=== PATIENT | female | born 1980 | race Caucasian/White ===

== ENCOUNTER → 2020-02-08 11:40 | Outpatient (BNVA) | payer OTHER, SELFPAY | PROVIDERS: Family Provider Family Medicine; Visit Provider Nurse Practitioner | DX: F33.2 Major depressive disorder, recurrent severe without psychotic features (principal) | CPT/HCPCS: 99213 ==

== ENCOUNTER → 2020-05-02 07:36 | Outpatient (BNVA) | payer BC, SELFPAY | PROVIDERS: Family Provider Family Medicine; Visit Provider Nurse Practitioner | DX: F33.2 Major depressive disorder, recurrent severe without psychotic features (principal) | CPT/HCPCS: 99214 ==

== ENCOUNTER 2020-05-06 07:19 | Outpatient (CLI) | payer OTHER, SELFPAY ==
--- NOTE | 2020-05-06 07:25 | MM_ITS ---
WS: [id number] BILATERAL DIGITAL SCREENING MAMMOGRAPHY WITH CAD CLINICAL INFORMATION: SCREENING HISTORY: Screening mammogram. No current complaints. COMPARISON: None. TECHNIQUE: Bilateral CC and MLO views. FINDINGS: Scattered fibroglandular densities bilaterally. No suspicious focal mass, asymmetry, calcifications, or architectural distortion. No evidence of malignancy. Dystrophic and punctate calcifications. MM/[place] [id number] IMPRESSION: BI-RADS: 2-Benign FOLLOW UP: 1 Year Follow-up Recommend return to annual screening mammography.
== END 2020-05-06 07:20 | disposition home or self-care (01) ==
LOC: RADSHAW 07:24
PROVIDERS: PCP Family Medicine; Visit Provider Obstetrics & Gynecology
DX: Z12.31 Encounter for screening mammogram for malignant neoplasm of breast (principal)
CPT/HCPCS: 77067

== ENCOUNTER 2020-06-22 15:51 | Outpatient (CLI) | payer OTHER, SELFPAY ==
--- NOTE | 2020-06-22 16:00 | MR_ITS ---
WS: [id number] MRI LUMBAR SPINE NONCONTRAST HISTORY: BACK PAIN CHRONIC SCIATICA COMPARISON: None available. TECHNIQUE: Sagittal and axial multisequence imaging is submitted. 5 lumbar type vertebral bodies. There is a 6 lumbar type vertebral body which will be labeled a lumba rized S1 segment for imaging purposes and reporting. There is a marked increase in the lordosis cente red at the L4-S1 segments. L5 anterolisthesis by 6 mm with unroofing of the disc. There is marrow xander ma in the adjacent endplates of L5 and S1. Marked degenerative disc disease at L5-S1 and the root of mesentery S1-S2 levels. Conus terminates normally at L1-2 disc level. L1-L2: Normal. L2-L3: Normal. L3-L4: Mild annular disc bulging with ligamentum flavum hypertrophy and facet arthritis. Small amount of fluid in the facet joints. L4-L5: Mild facet joint arthritis with ligamentum flavum hypertrophy. There is mild disc bulging with out significant stenosis at this time. L5-S1: Unroofing of the disc due to anterolisthesis of L5. There is disc contacting the ventral theca l sac with moderate stenosis. Complete obliteration of the fat in the foramen. There is significant d isc bulging into the foramen. Greatest amount of disc in the RIGHT foramen and disc protrusions are n ot excluded. Severe facet joint arthritis. Mild encroachment of the disc into the subarticular recess es. S1-S2: Broad-based disc bulging. No stenosis. MR/MR lumbar spine wo con* [id number] IMPRESSION: 1. L5 anterolisthesis by 6 mm and suspect bilateral fragmented pars defects. T here is severe bilateral foraminal stenosis at L5-S1, RIGHT greater than LEFT. 2. S1 is lumbarized. 3. Mild central and subarticular recess stenosis at L5-S1. 4. Marrow edema is probably reactive in the adjacent endplates of L5 and S1.
== END 2020-06-22 15:52 | disposition home or self-care (01) ==
LOC: RADSHAW 15:56
PROVIDERS: PCP Family Medicine; Visit Provider Family Medicine
DX: M54.5 Low back pain (principal); G89.29 Other chronic pain; M54.30 Sciatica, unspecified side; M48.07 Spinal stenosis, lumbosacral region; Q76.49 Other congenital malformations of spine, not associated with scoliosis; R60.0 Localized edema
CPT/HCPCS: 72148

== ENCOUNTER 2020-07-07 06:00 | Outpatient (RCR) | payer OTHER, SELFPAY | END 2020-07-18 23:59 | disposition home or self-care (01) | LOC: SPT 06:00 | PROVIDERS: PCP Family Medicine; Referring Provider Surgery; Visit Provider Surgery | DX: M54.10 Radiculopathy, site unspecified (principal); M43.16 Spondylolisthesis, lumbar region | CPT/HCPCS: 97110; 97161; 97530 ==

== ENCOUNTER → 2020-07-12 10:21 | Outpatient (BNVA) | payer OTHER, SELFPAY | PROVIDERS: Family Provider Family Medicine; PCP Family Medicine; Referring Provider Surgery; Visit Provider Anesthesiology Pain Medicine | DX: M54.42 Lumbago with sciatica, left side (principal); M54.41 Lumbago with sciatica, right side; M51.36 Other intervertebral disc degeneration, lumbar region; M47.816 Spondylosis without myelopathy or radiculopathy, lumbar region; M54.16 Radiculopathy, lumbar region; M43.10 Spondylolisthesis, site unspecified; M54.9 Dorsalgia, unspecified; M62.830 Muscle spasm of back; F17.210 Nicotine dependence, cigarettes, uncomplicated | CPT/HCPCS: 99205 ==

== ENCOUNTER → 2020-07-18 12:32 | Outpatient (BNVA) | payer OTHER, SELFPAY | PROVIDERS: Family Provider Family Medicine; PCP Family Medicine; Visit Provider Anesthesiology Pain Medicine | DX: M54.16 Radiculopathy, lumbar region (principal); M54.9 Dorsalgia, unspecified; F17.210 Nicotine dependence, cigarettes, uncomplicated | CPT/HCPCS: 64483; 64484; J1040; J3490 ==

== ENCOUNTER 2020-07-19 06:00 | Outpatient (RCR) | payer OTHER, SELFPAY | END 2020-08-17 23:59 | disposition home or self-care (01) | LOC: SPT 06:00 | PROVIDERS: PCP Family Medicine; Referring Provider Surgery; Visit Provider Surgery | DX: M54.10 Radiculopathy, site unspecified (principal); M43.16 Spondylolisthesis, lumbar region | CPT/HCPCS: 97110; 97530 ==

== ENCOUNTER → 2020-08-01 10:06 | Outpatient (BNVA) | payer OTHER, SELFPAY | PROVIDERS: PCP Family Medicine; Visit Provider Anesthesiology Pain Medicine | DX: M51.36 Other intervertebral disc degeneration, lumbar region (principal); M47.816 Spondylosis without myelopathy or radiculopathy, lumbar region; M54.16 Radiculopathy, lumbar region; M54.9 Dorsalgia, unspecified; M43.10 Spondylolisthesis, site unspecified; M62.830 Muscle spasm of back; F17.210 Nicotine dependence, cigarettes, uncomplicated | CPT/HCPCS: 99214 ==

== ENCOUNTER → 2020-08-09 08:02 | Outpatient (BNVA) | payer OTHER, SELFPAY | PROVIDERS: PCP Family Medicine; Visit Provider Nurse Practitioner | DX: F33.2 Major depressive disorder, recurrent severe without psychotic features (principal) | CPT/HCPCS: 99213 ==

== ENCOUNTER → 2020-08-17 14:03 | Outpatient (BNVA) | payer OTHER, SELFPAY | PROVIDERS: PCP Family Medicine; Visit Provider Anesthesiology Pain Medicine | DX: M47.816 Spondylosis without myelopathy or radiculopathy, lumbar region (principal); M54.9 Dorsalgia, unspecified; F17.210 Nicotine dependence, cigarettes, uncomplicated | CPT/HCPCS: 64493; 64494; 64495; J1040; J3490 ==

== ENCOUNTER 2020-08-18 06:00 | Outpatient (RCR) | payer OTHER, SELFPAY | END 2020-09-17 23:59 | disposition home or self-care (01) | LOC: SPT 06:00 | PROVIDERS: PCP Family Medicine; Referring Provider Surgery; Visit Provider Surgery | DX: M54.10 Radiculopathy, site unspecified (principal); M43.16 Spondylolisthesis, lumbar region | CPT/HCPCS: 97110 ==

== ENCOUNTER → 2020-08-23 10:26 | Outpatient (BNVA) | payer OTHER, SELFPAY | PROVIDERS: PCP Family Medicine; Visit Provider Anesthesiology | DX: M51.36 Other intervertebral disc degeneration, lumbar region (principal); M54.16 Radiculopathy, lumbar region; M47.816 Spondylosis without myelopathy or radiculopathy, lumbar region; M43.10 Spondylolisthesis, site unspecified; M54.9 Dorsalgia, unspecified; M62.830 Muscle spasm of back; F17.210 Nicotine dependence, cigarettes, uncomplicated; Z79.891 Long term (current) use of opiate analgesic | CPT/HCPCS: 99213; 99214 ==

== ENCOUNTER → 2020-09-16 09:02 | Outpatient (BNVA) | payer OTHER, SELFPAY | PROVIDERS: PCP Family Medicine; Visit Provider Anesthesiology | DX: M51.36 Other intervertebral disc degeneration, lumbar region (principal); M47.816 Spondylosis without myelopathy or radiculopathy, lumbar region; M54.16 Radiculopathy, lumbar region; M54.9 Dorsalgia, unspecified; M62.830 Muscle spasm of back; F17.210 Nicotine dependence, cigarettes, uncomplicated; Z79.891 Long term (current) use of opiate analgesic | CPT/HCPCS: 99213; 99214 ==

== ENCOUNTER 2020-09-18 06:00 | Outpatient (RCR) | payer OTHER, SELFPAY | END 2020-10-17 23:59 | disposition home or self-care (01) | LOC: SPT 06:00 | PROVIDERS: PCP Family Medicine; Referring Provider Surgery; Visit Provider Surgery | DX: M54.10 Radiculopathy, site unspecified (principal); M43.16 Spondylolisthesis, lumbar region | CPT/HCPCS: 97110 ==

== ENCOUNTER → 2020-09-20 10:07 | Outpatient (BNVA) | payer OTHER, SELFPAY | PROVIDERS: PCP Family Medicine; Referring Provider Family Medicine; Visit Provider Orthopaedic Surgery | DX: M47.816 Spondylosis without myelopathy or radiculopathy, lumbar region (principal); M41.80 Other forms of scoliosis, site unspecified | CPT/HCPCS: 72114 ==

== ENCOUNTER → 2020-09-29 10:45 | Outpatient (BNVA) | payer OTHER, SELFPAY | PROVIDERS: PCP Family Medicine; Visit Provider Anesthesiology | DX: M54.16 Radiculopathy, lumbar region (principal); M54.9 Dorsalgia, unspecified; M51.36 Other intervertebral disc degeneration, lumbar region; M47.816 Spondylosis without myelopathy or radiculopathy, lumbar region; F17.210 Nicotine dependence, cigarettes, uncomplicated; Z79.891 Long term (current) use of opiate analgesic | CPT/HCPCS: 62323; J1040; J3490 ==

== ENCOUNTER → 2020-10-17 07:52 | Outpatient (BNVA) | payer OTHER, SELFPAY | PROVIDERS: PCP Family Medicine; Visit Provider Nurse Practitioner | DX: F33.2 Major depressive disorder, recurrent severe without psychotic features (principal); F17.210 Nicotine dependence, cigarettes, uncomplicated | CPT/HCPCS: 99213 ==

== ENCOUNTER 2020-10-18 06:00 | Outpatient (RCR) | payer OTHER, SELFPAY | END 2020-11-08 23:00 | disposition home or self-care (01) | LOC: SPT 06:00 | PROVIDERS: PCP Family Medicine; Referring Provider Surgery; Visit Provider Surgery | DX: M54.10 Radiculopathy, site unspecified (principal); M54.9 Dorsalgia, unspecified; M43.16 Spondylolisthesis, lumbar region | CPT/HCPCS: 97110 ==

== ENCOUNTER → 2020-11-02 07:59 | Outpatient (BNVA) | payer OTHER, SELFPAY | PROVIDERS: PCP Family Medicine; Visit Provider Orthopaedic Surgery | DX: Z11.59 Encounter for screening for other viral diseases (principal); M43.16 Spondylolisthesis, lumbar region | CPT/HCPCS: 87635 ==

== ENCOUNTER 2020-11-09 11:21 | Inpatient (IN) | payer OTHER, SELFPAY ==
[2020-11-08 14:56] VITALS: BMI 32.1
[2020-11-09] VITALS (79 sets, daily range): BP systolic 90–163; BP diastolic 63–105; PULSE 73–102; RESP 9–29; TEMP 36.4–37.2; O2SAT 92–100
--- NOTE | 2020-11-09 | SCC_ITS ---
Procedure Done: 1. L4/5 Interbody fusion with posterolateral fusion 2. Instrumentation L4/5 3. Cage at L4/5 4. Laminectomy L4 for decompresion of bilateral L5 Nerve roots 5. use of autograft from same incision 6. allograft 7. Bone marrow aspirate from pedicle Right L5 pedicle 8. reduction of spondylolisthesis 45.3 seconds of fluoroscopic guidance, for a cumulative dose of 137.54 mGy, was provided to Dr. Sidhu by the radiology department. C-arm images of the lumbar spine were saved for the patient's permanent record. [facility]ITAL[facility]ory
--- NOTE | 2020-11-09 | XR_ITS ---
WS: [id number] C-ARM RADIOGRAPHS LUMBAR SPINE; 4 IMAGES HISTORY: LUBAR DECOMPRESSION COMPARISON: 09/20/2020 Intraoperative imaging during L4-5 posterior fusion with interbody spacer. Very mild persistent anter olisthesis of L5. XR/XR lumbar spine 2-3V* [id number] IMPRESSION: Status post posterior lumbar fusion with interbody spacer at what appears to be the L4-5 level.
--- NOTE | 2020-11-09 06:37 | W.PM.OPSUD ---
Surgery/Procedure H&P Update DATE OF PROCEDURE: November 09, 2020 DATE H&P PERFORMED: 10/11/20 H&P UPDATE INFORMATION: I have reviewed H&P completed within last 30 days, I have examined patient prior to procedure and No changes to prior documentation PREOP DIAGNOSIS: L4/5 Spondylolithesis PLANNED PROCEDURE: Operation Date: 11/09/20 07:00 Proposed Procedures p L4/5 PLIF(Not Applicable) - Ankit Sidhu DO
[2020-11-09] MEDS: sodium chloride 0.9% 1,000 ML 30 ML IV (06:47)
[2020-11-09 07:16] LABS: OR HCG Qualitative Urine Negative (Negative)
--- NOTE | 2020-11-09 07:17 | ANES.PREANE2 ---
Pre-Anesthetic Assessment Pre-Anesthetic Assessment: Height/Weight: Height 1.7 m Weight 92.986 kg Temp Pulse Resp BP Pulse Ox 97.8 F 102 H 18 163/103 99 11/09/20 06:37 11/09/20 06:37 11/09/20 06:37 11/09/20 06:37 11/09/20 06:37 Preop Diagnosis: L4/5 Spondylolithesis Proposed Procedure: Operation Date: 11/09/20 07:00 Proposed Procedures p L4/5 PLIF(Not Applicable) - Ankit Sidhu, DO Was Beta Katheryn taken within 24 hours: N/A Last intake: Intake Last Liquid Date 11/08/20 Last Liquid Time 23:30 Last Solid Date 11/08/20 Last Solid Time 23:30 Social: Social History: Tobacco and No alcohol Exam: Pre-Anes Outpt Exam: alert, oriented x 3 and regular rate & rhythm Additional Exam Findings (including area of procedure): Decreased BS Airway: Submandibular: WNL Cervical ROM: WNL MP: 1 Dentition: Full Pulmonary: Pulmonary: COPD CV/HEM: CV/HEM: HTN : : None reported Hepatic: Hepatic: None reported GI: GI: None reported Metabolic: Metabolic: None reported Musc/skel: Comments: Chronic back pain/opioid Neuropsych: Neuropsych: Anxiety and Depression Anesthetic Plan: ASA status: 3 Anesthesia: General Risk of > 500 ml blood loss (7ml/kg in children): Yes, adequate IV access and fluids planned Meds/Allergies Current Medications: Current Medications Generic Name Dose Route Start Last Admin Trade Name Freq PRN Reason Stop Dose Admin Sodium Chloride 1,000 mls @ 30 ml s/hr 11/09/20 06:15 11/09/20 06:47 Sodium Chloride 0.9% IV 11/10/20 06:14 30 mls/hr .Q24H RENZO Administration PFSH Anesthesia PFSH: Medical History (Updated 10/17/20 @ 12:54 by Danielle Bergman [facility] History of narcotic addiction Reports having spondylolisthesis and chronic lower back pain and was using pain medication for this. In December 2017 she checked herself into rehabilitation at [facility] and has not been on any narcotics since then. History of PCOS States that she was diagnosed with PCOS in her 20s. assisted (current) use of opiate analgesic Major depressive disorder, recurrent severe without psychotic features Nicotine dependence, cigarettes, uncomplicated No pertinent past medical history Denies diabetes, asthma, hypertension, seizures, DVT/PE. PMD: Dr. Urbano Surgical History S/P LEEP Has had 2 LEEP's in the past one at the age of 19 or 24 abnormal Pap smear and then again at the age of 27. S/P left knee surgery Open surgery done for done for a torn anterior cruciate ligament S/P wisdom tooth extraction Family History Father Heart disease Grandmother Breast cancer maternal, diagnosed in her 70s Denies family history of Colon cancer Ovarian cancer Diabetes Hyperlipidemia Anesthesia complication Hypertension Uterine cancer Stroke Social History Smoking and tobacco status: current every day smoker cigarettes Alcohol intake: current Alcohol intake frequency: few times a month History of recent travel: No Female Reproductive History: Date of last menstrual period: 11/08/20 Data Anesthesia Other Labs: Laboratory Results - last 48 hr 11/09/20 05:58 Urine HCG, Qual Negative Cardiac Studies: No Data to Display
[2020-11-09] MEDS: midazolam 1 mg/mL INJ 2 mL 2 MG IVP (07:20)
[2020-11-09] MEDS: heparin, porcine 1,000 unit/mL INJ 10 mL 10000 UNIT IRRIGATION (08:07)
--- NOTE | 2020-11-09 11:49 | P.OP_ITS ---
Operative Report Date of procedure: November 09, 2020 Pre-op Diagnosis: L4/5 Spondylolithesis Post-op diagnosis: same Procedure Done: 1. L4/5 Interbody fusion with posterolateral fusion 2. Instrumentation L4/5 3. Cage at L4/5 4. Laminectomy L4 for decompresion of bilateral L5 Nerve roots 5. use of autograft from same incision 6. allograft 7. Bone marrow aspirate from pedicle Right L5 pedicle 8. reduction of spondylolisthesis Surgeon: Ankit Sidhu Anesthesia: General Estimated blood loss (mL): 250 Condition: stable Disposition: PACU Procedure: 1. L4/5 Interbody fusion with posterolateral fusion 2. Instrumentation L4/5 3. Cage at L4/5 4. Laminectomy L4 for decompresion of bilateral L5 Nerve roots 5. use of autograft from same incision 6. allograft 7. Bone marrow aspirate from pedicle Right L5 pedicle 8. reduction of spondylolisthesis Patient was brought to the operative suite placed in the prone position after undergoing anesthesia and giving neuro monitoring connected. There were no issues with neuro monitoring throughout the entire case. Patient was placed in the prone position all areas impingement well-padded patient was prepped and draped in normal sterile fashion. Skin incision made over the L4-5 level. This confirmed under C-arm guidance. thoracolumbar fascia was split. Subperiosteal dissection was made from L4 and L5 to the tips of transverse processes. Once exposure was completed the fibrous tissue in the pars defect was identified and screws were placed into L5 bilaterally. Prior to placing the right L5 pedicle screw with the region of cell aspiration kit was used for bone marrow aspirate at the L5 pedicle. Just prior to placing the L5 screw this was done with a drill gearshift or feeling with a ball probe and then placing screws. Extension was brought to placing the L4 screws this was done in same technique with a drill gearshift probe ends and then placement the screw these were tapped in order to get a hold started because of the significant benefits fibrous tissue around this from the pars defect. It was also translated anteriorly significantly. Was brought to perform the laminectomy the high-speed bur was used to perform laminectomy bilaterally partial facetectomy on the right side was completed in the L5 nerve root was traced all the way around the L5 pedicle felt to be adequate decompressed. There was a significant step-off. At this point tender was brought to the left side where facetectomy was performed and the L5 nerve root was identified dissipates identified and to moustapha were placed in order to facilitate loosening up the disc base once this was completed then wendy was attached to the L5 pedicle and reduction towers placed onto the L4 pedicle and spondylolisthesis was reduced and distracted and locked into position. Next attention was brought to back to the disc space. Moustapha were done elevated 10 pituitary and downgoing curettes used to scrape the endplates. A size 10 cage from [employer] was placed into the interbody space of L4-5. The AP lateral fluoroscopy ensured the cage the appropriate spot. Screws rods were then attached to the left side again reduction tire was placed to reduce the fracture of the spondylolisthesis more. Next the wounds irrigated and bone graft was packed into the gutters after subparagraph after decortication of the TPs were done. Once all the bone graft was placed AP lateral fluoroscopy was inserted the hardware and reduction were complete still just around the thoracolumbar fascia was closed with 0 Vicryl skin was closed with 2-0 Vicryl and Monocryl suture and glue. Sterile dressing applied patient transferred to the PACU in stable condition.
--- NOTE | 2020-11-09 11:57 | SUR.PHASEI ---
1144 PT TO PACU SLEEPY WITH SNORING RESP , ORAL AIRWAY PLACED BY RN PER MAJOR EMERY GRINDER REQUEST AT BEDSIDE. VSS SCDS ON ANTOINE DRAIN COMPRESSED AND WITH SMALL AMT RED DRAINAGE NOTED PT AWAKES AND ORAL AIRWAY OUT PT MOVES ALL EXT TO COMMAND
[2020-11-09] MEDS: fentaNYL 50 mcg/mL INJ 2mL IVP (12:05)
[2020-11-09] MEDS: HYDROmorphone 1 mg/mL INJ 1 mL 0.5 MG IVP (12:11)
--- NOTE | 2020-11-09 12:18 | SUR.PHASEI ---
ABOVE ENTRY PT AWAKE AT 1200 ORAL AIRWAY OUT PT VERBALIZED APPROP MOVES ALL EXP C/O OF BACK PAIN OF 9 PT RESTLESS REMINDED TO LAY STILL 1220 PT SLEEPS NOW WITH GOOD RESP EFFORT ON 3LNC SATS 99% VSS ANTOINE DRAIN REMAINS COMPRESSED WITH SMALL AMT TO CONTAINER
--- NOTE | 2020-11-09 13:03 | ANE.PACU2 ---
Inpatient post-anesthesia follow up: Airway intact: Yes Vital signs: Temperature 97.6 F Pulse Rate 95 Respiratory Rate 24 Blood Pressure 123/92 Pulse Oximetry 99 Oxygen Delivery Me thod Nasal Cannula Oxygen Flow Rate 3 Fraction of Inspir ed Oxygen Hydration adequate: Yes Nausea and vomiting: No Pain level: 3 Additional Comments: Sedated
[2020-11-09] MEDS: lactated ringers 1,000 ML 90 ML IV (13:22)
[2020-11-09] MEDS: HYDROcodone-acetaminophen 10-325 mg Tablet PO ×2 (14:21→21:25)
[2020-11-09] MEDS: ketorolac 30 mg/mL INJ IVP ×2 (14:54→21:25)
[2020-11-09] MEDS: gabapentin 100 mg Capsule 200 MG PO ×2 (14:57→21:26)
--- NOTE | 2020-11-09 15:02 | PC.NURSE ---
teary eyed. asking to talk to her brother. belongings tracked down and phone to pt.
--- NOTE | 2020-11-09 15:12 | PC.NURSE ---
attempted to give fentanyl for pain. this was a pacu order. wasted 50 when i got it out, but after trying to scan in room it was for pacu. when i.t. helped me with transfer then pacu orders went away this fentanyl went away to waste other 50mcg. so total of 100mcg. wasted witnessed by dev lyle.
[2020-11-09] MEDS: morphine 4 mg/mL SDV 1 mL 2 MG IVP ×2 (15:27→19:34)
--- NOTE | 2020-11-09 15:35 | PC.NURSE ---
continues to c/o severe pain. m.s. given. backpack to room glasses and cell phone to pt.
--- NOTE | 2020-11-09 17:19 | PC.RESP ---
Smoking Cessation information sent to patient.
[2020-11-09] MEDS: OXcarbazepine 300 mg Tablet PO (19:32)
[2020-11-09] MEDS: docusate sodium 100 mg Capsule PO (19:33)
[2020-11-09] MEDS: trazodone 50 mg Tablet PO (21:26)
[2020-11-10] VITALS (17 sets, daily range): BP systolic 112–133; BP diastolic 75–91; PULSE 78–106; RESP 16; TEMP 36.7–37.4; O2SAT 92–99
[2020-11-10] MEDS: HYDROcodone-acetaminophen 10-325 mg Tablet PO ×4 (02:26→14:21)
[2020-11-10] MEDS: ketorolac 30 mg/mL INJ IVP ×2 (02:26→07:33)
--- NOTE | 2020-11-10 03:01 | PC.NURSE ---
ASSUMING CARE Patient resting in bed and states pain of 7/10 and on room air. Day shift nurse administered IV morphine. Hemovac draining. Patient alert and oriented x 4. No additional needs at this time.
--- NOTE | 2020-11-10 03:11 | PC.NURSE ---
UP TO BATHROOM Patient asked for assitance up to the commode. With the assistance of nurse and the walker, patient ambulated to the bathroom with minimal assistance. Patient did the majority of moving to the side of the bed and standing with spine precautions and no twisting with minimal nurse assistance. Patient states that it felt good to stand up and walk and is back in bed with call light in reach.
[2020-11-10] MEDS: enoxaparin 40 mg/0.4 mL Syringe SUBCUT (05:49)
--- NOTE | 2020-11-10 06:34 | PC.NURSE ---
SHIFT SUMMARY Once pain under control and patient found a comfortable position, patient slept most of shift. Up to bathroom once with minimal assistance and urinated 1 void. No BM yet. Pain medications given throughout night and patient states that she is feeling better this morning and that it felt good to get up.
--- NOTE | 2020-11-10 08:07 | P.DS_ITS ---
Discharge Providers Date of Admission: 11/09/20 11:21 Date of Discharge: November 10, 2020 Attending Provider at Admission: Ankit Sidhu DO Attending Provider at Discharge: Ankit Sidhu DO Primary Care Provider: Rip Urbano MD Reason for Visit Reason for Visit: lumbar decompression Hospital Course Hospital Course Patient was mated on 11/09/2025 after having a posterior lumbar interbody fusion done. Patient was able to get up to chair and go to the bathroom on her own last night. Pain seems to be controlled this morning. Plan will be to take the drain out this morning she had 100 cc at the drain this morning. At this point my plan is to discharge her today which is 11/10/2020. Physical Exam Narrative: EXAM NARRATIVE: She has 5 out of 5 strength bilateral lower extremities sensation is intact. She is sitting up comfortably in bed. Discharge Data Data Completed and Pending: Completed Studies During Hospitalization Category Date Time Status XR lumbar spine 2 -3V* [id number] Routine Exams 11/09/20 Completed Vitals: Last Vital Signs Temp 98.9 F 11/10/20 06:30 Pulse 81 11/10/20 06:30 Resp 16 11/09/20 20:30 BP 130/86 11/10/20 06:30 Pulse Ox 95 11/10/20 06:30 Discharge Plan Discharge Patient Disposition: Home Condition: Stable Prescriptions: [facility] 10-325 mg tablet 1 tab PO Q4H PRN (Reason: pain) 7 Days Qty: 60 RF: 0 Continued acetaminophen [Tylenol Extra Strength] 500 mg tablet 500 mg PO Q6H PRN (Reason: Pain) RF: 0 norethindrone (contraceptive) [Ortho Micronor] 0.35 mg tablet 0.35 mg PO DAILY Qty: 84 RF: 3 celecoxib [Celebrex] 200 mg capsule 200 mg PO DAILY 30 Days Qty: 30 RF: 1 tizanidine 4 mg tablet 4 mg PO BID PRN (Reason: muscle spasticity) Qty: 60 RF: 1 gabapentin 100 mg capsule 200 mg PO TID 30 Days Qty: 180 RF: 1 trazodone 50 mg tablet 50 mg PO .QHS Qty: 30 RF: 2 duloxetine [Cymbalta] 60 mg capsule,delayed release(DR/EC) 120 mg PO DAILY Qty: 60 RF: 2 buspirone 15 mg tablet 15 mg PO BID Qty: 60 RF: 2 oxcarbazepine [Trileptal] 300 mg tablet 300 mg PO BID Qty: 60 RF: 0 clonazepam 0.5 mg tablet 0.25 mg PO BID PRN (Reason: anxiety) Qty: 60 RF: 0 Discontinued hydrocodone-acetaminophen 7.5-325 mg tablet 1 tab PO BID PRN (Reason: pain) 30 Days Qty: 60 RF: 0 Discharge Orders: Discharge Order (Routine); Ordered 11/10/20 Ordered By: Ankit Sidhu Discharge Diet: Advance as tolerated Activity Restrictions/Additional Instructions: Thank you for [facility] for your care! The following is a list of instructions, from your provider, to follow upon your discharge to ensure you have the optimal recovery from your recent injury orsurgery. Follow-up care is a goldberg part of your treatment and safety. Be sure to make and go to all appointments, and call your doctor if you are having problems. If you do not already have a follow-up appointment made, call Dr. Sidhu office in the next 1-3 days to make follow up appointment for 2 weeks at [phone]. It is also a good idea to know your test results and keep a list of the medicines you take. Medications will be prescribed for you at your provider's discretion. These medications are to be used as instructed; if they are taken more often that prescribed they will not be refilled early and in most cases will not be refilled at all. > When a refill is needed,you should contact matty malik 2-3 business days before your prescription runs out. Medications will NOT be refilled by functional mental disability teacher providers after hours! > Many pain medications contain Tylenol (Acetaminophen). Do not consume more than 4,000 mg of Tylenol per day in total with any combination ofmedications. > Pain medications can cause constipation. Please use an over the counter stool softener as directed, while taking pain medications. Consulty our local pharmacist with questions or recommendations on stool softeners. If constipation persists, contact our office or your primary care provider. > While under our care,you are not to receive pain medications or other controlled substances from any other provider unless our office is notified and approves. Any attempts to do so will result in refusal to prescribe any further pain medications and possible dismissal from our practice. ? Your wound and/or dressing should remain clean and dry for 2 days after surgery. On postoperative day 2 (48 hours after your surgery) the dressing (if present) should be removed and it is okay to shower and get the incision wet. Pad dry afterwards. No further dressing should be required from that point on. Do not put any creams or ointments on theincision > It is normal for there to be a small amount of discharge (bloody or blood tinged) present from a surgical wound for the first 1-3days. > The wound should be examined twice a day for signs of infection. Mild redness or bruising is to be expected but indications that an infection maybe starting would include; An increase in redness, swelling, or discharge, a foul odor present around the incision, and/or a fever greater than 101 ?F ? Showering is permitted, however we ask that you do not take a bath, sit in a whirlpool / Jacuzzi, or go swimming for 1 month. For only the first 2 days after surgery, lt wilt be necessary for you to cover your wound/dressing with plastic and tape to keep it dry. ? Walking is essential for the healing process after surgery. We would like you to slowly advance your walking. This should be done on relatively flat clear ground (inside or out) or can be done on a treadmill. Remember this goal does not have to happen all at once, slowly increase your distance and duration. This can be broken into more more than one walk per day as tolerated. Patients who walk as directed after surgery rarely require Physical Therapy. In the unlikely event this issue arises your provider will direct hospital staff to make the appropriate arrangements. ? No lifting over 5 pounds {a gallon of milk) or bending/twisting until further notice. Each of these activities places an unnecessary amount of stress onto the body and can impede the delicate healing process. > Instead of bending at the waist, keep your back straight and bend at the knees. > Instead of twisting your torso, keep your back straight and turn your entire body with your feet. ? You may sleep in any position which makes you comfortable. Many patients find comfort sleeping in a reclining chair. It is not abnormal to have difficulty sleeping for the first several weeks following your surgery. We recommend trying Benadry! or Tylenol PM as directed to help with your sleeping difficulties. Both medications are over the counter and available withoutprescription. ? NO SMOKING!!! Smoking dramatically increases the probability of developing postoperative wound infections. ? Common complaints after lumbar and/or thoracic spine surgery include, but are not limited to: numbness and/or tingling in the legs, pain around the incision and surrounding tissues, muscle spasms, or stiffness of the middle to low back. Contact our office if these symptoms persist or if an acute change occurs. ? No driving for the first 3-5days, and not while taking narcotics until seen at your follow-up appointment and cleared. There are no restrictions for riding on short trips, however if you take a longer trip, arrangements s hould be made to make regular stops to get out of the vehicle and stretch . ? Swelling is an unfortunate event that will take place with any surgery and is the primary source of your postoperative discomfort. While walking and regular approved activities helps control inflammation, there are additional steps you can take to minimizeswelling. > Place ice over the surgical site and surrounding tissue for twenty minutes, followed by applying a low/medium heat (heating pad) for an additional twenty minutes every 1-2 hours as needed for painrelief. > You may use of over the counter anti-inflammatory medications (Ibuprofen, Motrin, Aleve, Advil, etc) as directed on the package label. These types of medicines wm significantly reduce the amount of discomfort you experience after surgery from swelling. It should be noted that if you have and allergy to any of these medications, or a history of ulcers or kidney disease you should consult you primary care provider prior to starting these medications. Discharge Attestations Time Spent in Discharge Care*: less than 30 min Quality Metrics Clinical Quality Measures During this hospital stay, did patient experience: None Coding Level of Care Code Acute Lav Crewman for Monika Payne
[2020-11-10] MEDS: CELEcoxib 200 mg Capsule PO (09:04)
[2020-11-10] MEDS: OXcarbazepine 300 mg Tablet PO (09:04)
[2020-11-10] MEDS: docusate sodium 100 mg Capsule PO (09:04)
--- NOTE | 2020-11-10 11:04 | PC.CHAP ---
Pastoral Care Encounter/Spiritual Assessment Type of Contact [] Declined inspector tubes visit [] Patient/Family/Request visit [] Outpatient visit [] Follow-up visit [] Physician referral [] Code/Alert [x] Routine visit [] Staff referral [] Actively dying [] Patient sleeping [] Family support [] [] Out of room [] Palliative care [] [x] Receiving care in room [] Pre-surgical visit [] Trauma [] Long length of stay [] ICU visit [] Other: Relational/Emotional Strength [] Patient feels connected with others/family/visitors/staff [x] Distress [] Loneliness/isolation [] Abandonment Spirituality of Patient [x] Person of Anitha [] Attends Sabianist of their Anitha [x] Believes in Prayer [] Reads Bible or Congregation materials [] There are Spiritual issues to be addressed Enamel Cracker Interventions [x] Prayer [x] Active listening [x] Non-anxious presence [x] Spiritual/emotional support [] Crisis/trauma care [x] Spiritual counseling [] Bereavement support [] Provided bereavement packet [] Provided Bible/devotional materials [] Provided toy/stuffed animal, coloring book to patient or family member [] Provided Communion [] Anointing/[place] [] Salvation [x] Completed spiritual assessment [] Other: Impact on Illness or Injury [] Angry [x] Fearful [] Anxious [] Often cries [] Exhaustion [] Unable to work [] Unable to attend episcopalian [] Unable to walk/stand [] Unable to read [] Unable to drive [] Unable to eat/drink [] Unable to sleep [] Unable to be with family [] Patient intubated [] Other: Summary Has a back problem in sever pain, doesn't know about the kind of treatment needed Time spent with patient 10 mins
--- NOTE | 2020-11-14 16:24 | PC.RESP ---
Smoking Cessation sent to patient.
== END 2020-11-10 15:03 | disposition home or self-care (01) | DRG 460 ==
LOC: ICU 11:51 → MEDSURG 11-10 08:03
PROVIDERS: Anesthesiology; Admitting Provider Orthopaedic Surgery; PCP Family Medicine; Visit Provider Orthopaedic Surgery
PROC: 0SG00AJ Fusion of Lumbar Vertebral Joint with Interbody Fusion Device, Posterior Approach, Anterior Column, Open Approach (ICD-10-PCS; principal; 2020-11-09 07:00)
DX: M43.16 Spondylolisthesis, lumbar region (principal); I10 Essential (primary) hypertension; J44.9 Chronic obstructive pulmonary disease, unspecified; G89.29 Other chronic pain; F41.8 Other specified anxiety disorders; Z79.891 Long term (current) use of opiate analgesic; F17.210 Nicotine dependence, cigarettes, uncomplicated
CPT/HCPCS: 12345; 72100; 76000; 81025; 84703; 96365; 96372; 96374; 97116; 97161; 97530; C1713; C9359; J0131; J0690; J1100; J1170; J1644; J1650; J1885; J2250; J2270; J2370; J2405; J2704; J3010; J3490; J7030

== ENCOUNTER → 2020-12-27 10:36 | Outpatient (BNVA) | payer OTHER, SELFPAY | PROVIDERS: PCP Family Medicine; Visit Provider Orthopaedic Surgery | DX: M43.16 Spondylolisthesis, lumbar region (principal); Z98.1 Arthrodesis status | CPT/HCPCS: 72100 ==

== ENCOUNTER → 2021-01-24 13:36 | Outpatient (BNVA) | payer OTHER, SELFPAY | PROVIDERS: PCP Family Medicine; Visit Provider Internal Medicine | DX: E04.1 Nontoxic single thyroid nodule (principal); E28.2 Polycystic ovarian syndrome; R63.5 Abnormal weight gain; R73.03 Prediabetes | CPT/HCPCS: 99205 ==

== ENCOUNTER → 2021-02-08 07:45 | Outpatient (BNVA) | payer OTHER, SELFPAY | PROVIDERS: PCP Family Medicine; Visit Provider Nurse Practitioner | DX: F33.2 Major depressive disorder, recurrent severe without psychotic features (principal); F17.210 Nicotine dependence, cigarettes, uncomplicated | CPT/HCPCS: 99214 ==

== ENCOUNTER → 2021-02-09 15:59 | Outpatient (BNVA) | payer OTHER, SELFPAY | PROVIDERS: PCP Family Medicine; Visit Provider Orthopaedic Surgery | DX: Z48.89 Encounter for other specified surgical aftercare (principal); M43.16 Spondylolisthesis, lumbar region; Z98.1 Arthrodesis status | CPT/HCPCS: 72100 ==

== ENCOUNTER 2021-02-13 06:00 | Outpatient (RCR) | payer OTHER, SELFPAY | END 2021-02-15 23:59 | disposition home or self-care (01) | LOC: SPT 06:00 | PROVIDERS: PCP Family Medicine; Referring Provider Orthopaedic Surgery; Visit Provider Orthopaedic Surgery | DX: M47.816 Spondylosis without myelopathy or radiculopathy, lumbar region (principal) | CPT/HCPCS: 97110; 97161 ==

== ENCOUNTER 2021-02-16 06:00 | Outpatient (RCR) | payer OTHER, SELFPAY | END 2021-03-17 23:59 | disposition home or self-care (01) | LOC: SPT 06:00 | PROVIDERS: PCP Family Medicine; Referring Provider Orthopaedic Surgery; Visit Provider Orthopaedic Surgery | DX: M47.896 Other spondylosis, lumbar region (principal) | CPT/HCPCS: 97110; 97530 ==

== ENCOUNTER → 2021-03-28 11:43 | Outpatient (BNVA) | payer OTHER, SELFPAY | PROVIDERS: PCP Family Medicine; Visit Provider Nurse Practitioner | DX: F33.2 Major depressive disorder, recurrent severe without psychotic features (principal); F17.210 Nicotine dependence, cigarettes, uncomplicated | CPT/HCPCS: 99214 ==

== ENCOUNTER → 2021-04-04 08:16 | Outpatient (BNVA) | payer OTHER, SELFPAY | PROVIDERS: PCP Family Medicine; Visit Provider Orthopaedic Surgery | DX: M54.16 Radiculopathy, lumbar region (principal) | CPT/HCPCS: 72110 ==

== ENCOUNTER → 2021-07-03 08:22 | Outpatient (BNVA) | payer OTHER, SELFPAY | PROVIDERS: PCP Family Medicine; Visit Provider Obstetrics & Gynecology | DX: Z30.9 Encounter for contraceptive management, unspecified (principal) | CPT/HCPCS: 81025 ==

== ENCOUNTER → 2021-07-06 14:43 | Outpatient (BNVA) | payer OTHER, SELFPAY | PROVIDERS: PCP Family Medicine; Visit Provider Obstetrics & Gynecology | DX: Z30.431 Encounter for routine checking of intrauterine contraceptive device (principal) | CPT/HCPCS: 76830 ==

== ENCOUNTER → 2021-12-06 08:04 | Outpatient (BNVA) | payer OTHER, SELFPAY | PROVIDERS: PCP Family Medicine; Visit Provider Obstetrics & Gynecology | DX: N93.9 Abnormal uterine and vaginal bleeding, unspecified (principal); Z12.4 Encounter for screening for malignant neoplasm of cervix | CPT/HCPCS: 87624 ==

== ENCOUNTER → 2022-01-04 13:06 | Outpatient (BNVA) | payer OTHER, SELFPAY | PROVIDERS: PCP Family Medicine; Visit Provider Orthopaedic Surgery | DX: M43.16 Spondylolisthesis, lumbar region (principal) | CPT/HCPCS: 72100 ==

== ENCOUNTER 2022-01-26 12:12 | Outpatient (CLI) | payer OTHER, SELFPAY ==
--- NOTE | 2022-01-26 12:19 | XR_ITS ---
WS: [id number] Chest 2 views, 01/26/2022 Clinical Data: BRONCHITIS ACUTE Comparison: None. Findings: No nodules, masses or effusions are seen. The heart is normal. The pulmonary vascularity is not increased. No pneumonia or pneumothorax is seen. XR/XR chest 2V* [id number] Impression: Negative chest.
== END 2022-01-26 12:13 | disposition home or self-care (01) ==
LOC: RAD 12:14
PROVIDERS: Family Provider Orthopaedic Surgery; PCP Family Medicine; Visit Provider Clinical Nurse Specialist Adult Health
DX: J20.9 Acute bronchitis, unspecified (principal)
CPT/HCPCS: 71046

== ENCOUNTER → 2022-02-07 08:29 | Outpatient (BNVA) | payer OTHER, SELFPAY | PROVIDERS: Family Provider Orthopaedic Surgery; PCP Family Medicine; Referring Provider Family Medicine; Visit Provider Specialist | DX: M25.562 Pain in left knee (principal) | CPT/HCPCS: 73560; 73565 ==

== ENCOUNTER 2022-02-13 06:00 | Outpatient (RCR) | payer OTHER, SELFPAY | END 2022-02-15 23:59 | disposition home or self-care (01) | LOC: SPT 06:00 | PROVIDERS: PCP Family Medicine; Visit Provider Orthopaedic Surgery | DX: M54.40 Lumbago with sciatica, unspecified side (principal) | CPT/HCPCS: 97110; 97161 ==

== ENCOUNTER 2022-02-16 06:00 | Outpatient (RCR) | payer OTHER, SELFPAY | END 2022-03-17 23:59 | disposition home or self-care (01) | LOC: SPT 06:00 | PROVIDERS: PCP Family Medicine; Referring Provider Orthopaedic Surgery; Visit Provider Orthopaedic Surgery | DX: M54.50 Low back pain, unspecified (principal); M54.30 Sciatica, unspecified side | CPT/HCPCS: 97110; 97530 ==

== ENCOUNTER 2022-03-18 | Outpatient (RCR) | payer OTHER, SELFPAY | END 2022-04-17 23:59 | disposition home or self-care (01) | LOC: SPT | PROVIDERS: PCP Family Medicine; Referring Provider Orthopaedic Surgery; Visit Provider Orthopaedic Surgery | DX: M54.50 Low back pain, unspecified (principal) | CPT/HCPCS: 97110 ==

== ENCOUNTER 2022-04-18 06:00 | Outpatient (RCR) | payer OTHER, SELFPAY | END 2022-05-17 23:59 | disposition home or self-care (01) | LOC: SPT 06:00 | PROVIDERS: PCP Family Medicine; Referring Provider Orthopaedic Surgery; Visit Provider Orthopaedic Surgery | DX: M54.40 Lumbago with sciatica, unspecified side (principal) | CPT/HCPCS: 97110 ==

== ENCOUNTER → 2022-08-10 10:56 | Outpatient (BNVA) | payer OTHER, SELFPAY | PROVIDERS: PCP Family Medicine; Visit Provider Obstetrics & Gynecology | DX: E28.2 Polycystic ovarian syndrome (principal) | CPT/HCPCS: 83036; 83525; 84443 ==

== ENCOUNTER → 2022-08-14 07:56 | Outpatient (BNVA) | payer OTHER, SELFPAY | PROVIDERS: PCP Family Medicine; Visit Provider Obstetrics & Gynecology | DX: E28.2 Polycystic ovarian syndrome (principal); N93.9 Abnormal uterine and vaginal bleeding, unspecified | CPT/HCPCS: 76830 ==

== ENCOUNTER 2022-08-25 16:38 | Emergency (ER) | payer OTHER, SELFPAY ==
[2022-08-25 16:40] VITALS: BP 126/86; PULSE 93; RESP 20; TEMP 36.4; O2SAT 96; BMI 31.8
--- NOTE | 2022-08-25 16:54 | XRR_ITS ---
PROCEDURE INFORMATION: Exam: XR Chest Exam date and time: 08/25/2022 5:52 PM Age: 42 years old Clinical indication: Shortness of breath; Additional info: SOB TECHNIQUE: Imaging protocol: Radiologic exam of the chest. Views: 1 view. COMPARISON: CR XR chest 2V* [id number] 01/26/2022 12:23 PM FINDINGS: Lungs: Unremarkable. No consolidation. Pleural spaces: Unremarkable. No pleural effusion. No pneumothorax. Heart/Mediastinum: Unremarkable. No cardiomegaly. Bones/joints: Unremarkable. XR/XR chest 1V portable [id number] IMPRESSION: No acute findings.
--- NOTE | 2022-08-25 19:26 | W.ED.URI ---
HPI - URI/Sore Throat General: Chief Complaint: Upper Respiratory Infection Stated Complaint: SOB Time Seen by Provider: 08/25/22 18:43 History of Present Illness: Patient is a 42-year-old female comes to the ED with upper respiratory symptoms. Patient's symptoms started approximately 1 week ago. She has been having nasal congestion and drainage, cough, body aches and chills. Patient says her cough is productive with yellow sputum. She endorses having shortness of breath over the past couple days from all her coughing. She has used albuterol to help with her shortness of breath. She endorses some wheezing as well. Denies any fevers, chest pain, nausea/vomiting or bladder or bowel symptoms. Patient says she has bronchitis-like this every year. Associated symptoms: Reports nasal congestion; Deny abdominal pain, chills, chest pain, diarrhea, fever(s), headache(s), nausea or vomiting Review of Systems Const: Denies: fever(s), chills or fatigue Eyes: Denies: change in vision or eye discomfort ENMT: Reports: nasal discharge and nasal congestion; Denies: throat pain or odynophagia Card: Denies: chest pain, palpitations, edema, swelling of feet/ankles, dyspnea on exertion or orthopnea Resp: Reports: dyspnea and productive cough; Denies: non-productive cough GI: Denies: abdominal pain, nausea, vomiting, diarrhea, constipation or hematochezia : Denies: flank pain, dysuria or hematuria Musc: Denies: neck pain, back pain or extremity swelling Skin/Breast: Denies: rash or new lesions Neuro: Denies: headache(s), numbness in extremities or weakness in extremities PFS ED PFSH: Medical History History of narcotic addiction Reports having spondylolisthesis and chronic lower back pain and was using pain medication for this. In December 2017 she checked herself into rehabilitation at [facility] and has not been on any narcotics since then. History of PCOS States that she was diagnosed with PCOS in her 20s. Major depressive disorder, recurrent severe without psychotic features No pertinent past medical history Denies diabetes, asthma, hypertension, seizures, DVT/PE. PMD: Dr. Urbano Opioid dependence, in remission Opioid dependence, uncomplicated Premenstrual dysphoric disorder Surgical History History of back surgery Performed in 2019 S/P LEEP Has had 2 LEEP's in the past --->one at the age of 19 for abnormal Pap smear and then again at the age of 27. S/P left knee surgery Open surgery done for done for a torn anterior cruciate ligament S/P wisdom tooth extraction Family History Father Heart disease Grandmother Breast cancer maternal, diagnosed in her 70s Denies family history of Colon cancer Ovarian cancer Diabetes Hyperlipidemia Anesthesia complication Hypertension Uterine cancer Stroke Social History Smoking and tobacco status: current some day smoker (5 cigs daily) cigarettes Packs smoked per day: 0.75 Years cigarettes smoked: 15 Quit status (tobacco): has tried quititng Number of times tried to quit tobacco: 10 Second hand smoke exposure: No Smoking risk assessment/counseling performed?: No Alcohol intake: current Alcohol intake frequency: holidays/special occasions only Desire information about alcohol rehabilitation?: No Counseling given: No Desire information about substance/drug rehabilitation?: No Counseling given: No Female Reproductive History: Date of last menstrual period: 08/21/22 Physical Exam Const: COMMON NORMALS: patient oriented x3 and alert GENERAL APPEARANCE: cooperative and comfortable HENMT: COMMON NORMALS: normocephalic HEAD & SCALP: normocephalic MOUTH: Normal oral and palatal mucosa present THROAT: posterior oropharynx normal and uvula midline Neck/C-Spine: COMMON NORMALS: supple GENERAL: Yes normal visual inspection Resp: COMMON NORMALS: normal respiratory effort, No retractions and No use of accessory muscles AUSCULTATION: wheezes expiratory wheezes and lower bilaterally Cardio: COMMON NORMALS: regular rate, regular rhythm, S1 normal heart sound present, S2 normal heart sound present, No gallops present (Cardio), No clicks present (Cardio), No murmurs present (Cardio) and Peripheral pulses 2+ throughout RATE: regular rate RHYTHM: regular rhythm HEART SOUNDS: S1 normal heart sound present and S2 normal heart sound present PERIPHERAL PULSES: Peripheral pulses 2+ throughout GI: COMMON NORMALS: Normal to inspection, nondistended, normoactive bowel sounds present, Soft to palpation, non-tender and no masses PALPATION: Yes Soft to palpation : COMMON NORMALS: Yes no CVA tenderness BLADDER/KIDNEY EXAM: Yes no CVA tenderness Back/Pelvis: COMMON NORMALS: no CVA tenderness Extremity: COMMON NORMALS: normal to inspection Neuro: COMMON NORMALS: patient oriented x3 SENSORIUM/ORIENTATION: Yes alert GAIT: Yes Normal gait present Skin: GENERAL SKIN EXAM: dry skin Course Vital Signs: Vital signs: Vital Signs Temperature 97.6 F 08/25/22 16:40 Pulse Rate 102 H 08/25/22 21:00 Respiratory Rate 18 08/25/22 21:11 Blood Pressure 126/86 08/25/22 16:40 Pulse Oximetry 93 08/25/22 21:11 Oxygen Delivery Me thod 08/25/22 21:05 MDM - URI/Sore Throat Medical Decision Making Patient is a 42-year-old female comes to the ED with upper respiratory symptoms. Patient's symptoms started approximately 1 week ago. She has been having nasal congestion and drainage, cough, body aches and chills. Patient says her cough is productive with yellow sputum. Vitals are stable. Patient has some bilateral lower lung expiratory wheezing present but rest of exam is benign. Patient appears nontoxic in no acute distress. COVID test pending. Chest x-ray showed no pneumonia. Patient was given DuoNeb breathing treatment here in the ED. She was diagnosed with bronchitis and discharged home on a prescription of azithromycin and prednisone. Told to follow-up with PCP within the next week for reevaluation. COVID test is pending and she should find out results within the next 2 days and I told her to contact [facility] in the next 2 days to find out COVID results. Patient understood and agreed with plan. Lab Data Radiology Impressions Chest X-Ray 08/25/22 16:54 IMPRESSION: No acute findings. Discharge Plan Discharge Patient Disposition: Home Clinical Impression: Bronchitis Condition: Stable Prescriptions: New azithromycin 250 mg tablet 250 mg PO DAILY 4 Days Qty: 4 0RF Rx Instructions: start on day 2 of therapy Medrol (Chuck) 4 mg tablets,dose pack See Rx Instructions .ROUTE .COMPLEX Qty: 21 0RF Rx Instructions: orally per package directions No Action acetaminophen [Tylenol Extra Strength] 500 mg tablet 500 mg PO Q6H PRN (Reason: Pain) norethindrone ac-eth estradiol [April12/07 (21)] 1-20 mg-mcg tablet 1 tab PO DAILY Qty: 84 5RF fluoxetine [Prozac] 10 mg capsule 10 mg PO DAILY Qty: 42 5RF benzonatate 100 mg capsule 100 mg PO TID PRN (Reason: cough) albuterol sulfate 90 mcg/actuation HFA aerosol inhaler 2 puff inhalation QID PRN (Reason: shortness of breath or wheezing) buprenorphine-naloxone [Suboxone] 4-1 mg film 1 film sublingual TID Qty: 45 0RF vilazodone [Viibryd] 20 mg tablet 20 mg PO DAILY Qty: 30 1RF Rx Instructions: must administer with a meal/food trazodone 100 mg tablet 200 mg PO .HS PRN (Reason: insomnia) Qty: 60 1RF celecoxib [Celebrex] 200 mg capsule 200 mg PO DAILY Qty: 30 0RF Rx Instructions: Take one cap daily Discharge Orders: Discharge ED (Routine); Ordered 08/25/22 Ordered By: Abad Adkins Referrals: Rip Urbano MD [Primary Care Provider] - Discharge Diet: Regular Discharge Activity: Increase activity as tolerated Patient Instructions: Acute Bronchitis (ED) Activity Restrictions/Additional Instructions: Follow-up with medical provider as directed in the next 5 to 7 days for reevaluation. Your COVID test is pending and results should be back within the next couple days you can call [facility] to find out test results. Take medications as prescribed. Return to the ER or your medical provider if condition worsens. Please read and understand discharge instructions. Thank you for choosing [facility] for your healthcare needs today. Please realize this is an emergency room and that we are providing you with a medical screening exam and this may not be complete and all inclusive of all the testing and or work up that you may need to determine your ailment or severity of your illness. It is very important that you follow up as instructed or that you return to the Emergency Department should you have concerns or if your condition changes or worsens in any way. Stand Alone Forms: Work/School Release Coding Level of Care Code ED Home [employer] Extension Worker for Monika Fwlester Exam Comprehensive
[2022-08-25] MEDS: azithromycin 250 mg Tablet 500 MG PO (19:32)
[2022-08-25 19:57] VITALS: RESP 18; O2SAT 94
--- NOTE | 2022-08-25 19:58 | PC.NURSE ---
patient assisted to position of comfort, given warm blanket, sandwich, jello with spoon, and crackers. denies further needs. updated on pending labs and wait times, verbalized thanks and understanding. gcs 15 nad.
--- NOTE | 2022-08-25 20:06 | PC.NURSE ---
RT called and notified of updraft order
[2022-08-25] MEDS: ipratropium-albuterol 3 mL Neb 6 ML INHALATION (20:40)
[2022-08-25 20:50] VITALS: PULSE 98; RESP 20; O2SAT 96
[2022-08-25 21:00] VITALS: PULSE 102
[2022-08-25 21:05] VITALS: O2SAT 92
[2022-08-25 21:11] VITALS: RESP 18; O2SAT 93
[2022-08-27 23:38] LABS: Quest SARS-CoV-2 RNA NOT DETECTED (NOT DETECTED)
== END 2022-08-25 21:02 | disposition home or self-care (01) ==
PROVIDERS: Family Medicine; Emergency Provider Physician Assistant; PCP Family Medicine
DX: J40 Bronchitis, not specified as acute or chronic (principal); F17.210 Nicotine dependence, cigarettes, uncomplicated; Z20.822 Contact with and (suspected) exposure to COVID-19
CPT/HCPCS: 71045; 87635; 94640; 96372; 99284; J2930; Q0144

== ENCOUNTER → 2022-09-03 13:35 | Outpatient (BNVA) | payer OTHER, SELFPAY | PROVIDERS: PCP Family Medicine; Visit Provider Psychiatry & Neurology Psychiatry | DX: F12.20 Cannabis dependence, uncomplicated (principal); F11.20 Opioid dependence, uncomplicated; Z79.899 Other long term (current) drug therapy | CPT/HCPCS: 80307 ==

== ENCOUNTER → 2022-10-05 13:12 | Outpatient (BNVA) | payer OTHER, SELFPAY | PROVIDERS: PCP Family Medicine; Visit Provider Psychiatry & Neurology Psychiatry | DX: F11.20 Opioid dependence, uncomplicated (principal); F12.20 Cannabis dependence, uncomplicated; Z79.899 Other long term (current) drug therapy | CPT/HCPCS: 80307 ==

== ENCOUNTER 2022-10-29 10:51 | Outpatient (CLI) | payer OTHER, SELFPAY ==
--- NOTE | 2022-10-29 11:42 | XR_ITS ---
WS: [id number] Lumbar spine, 3 views, 10/29/2022 Clinical Data: back pain, left sciatic area Comparison: Lumbar spine, 01/04/2022 Findings: The posterior lumbar fusion at L4-L5 with bilateral pedicle screws and connecting rods remains the sa me. There is an artificial disc at L4-L5. There is degenerative disc narrowing at L5-S1. There is a 0.8 cm subluxation of L4 and L5 unchanged. There is a dextroscoliosis. There is an L5 lami nectomy. XR/XR lumbar spine 2-3V* [id number] Impression: Stable postoperative changes.
== END 2022-10-29 10:52 | disposition home or self-care (01) ==
PROVIDERS: PCP Family Medicine; Visit Provider Clinical Nurse Specialist Adult Health
DX: M43.16 Spondylolisthesis, lumbar region (principal)
CPT/HCPCS: 72100

== ENCOUNTER → 2022-11-06 08:48 | Outpatient (BNVA) | payer OTHER, SELFPAY | PROVIDERS: PCP Family Medicine; Visit Provider Physician Assistant | DX: M54.42 Lumbago with sciatica, left side (principal); M43.16 Spondylolisthesis, lumbar region | CPT/HCPCS: 72120 ==

== ENCOUNTER 2022-11-14 09:26 | Emergency (ER) | payer OTHER, SELFPAY ==
[2022-11-14 09:30] VITALS: BP 156/101; PULSE 100; RESP 18; TEMP 36.6; O2SAT 99; BMI 28.5
--- NOTE | 2022-11-14 09:59 | W.ED.BACK ---
HPI - Back Pain/Injury General: Chief Complaint: Back Pain/Injury Stated Complaint: post op, back pain Time Seen by Provider: 11/14/22 09:37 History of Present Illness: Patient is a 42-year-old female comes to the ED with lower back pain. Patient has a history of lower back pain and has seen Dr. Sidhu in the past and had lumbar spinal fusion surgery back in October 2020. Patient says her acute low back pain started back on October 25. She saw Dr. Sidhu's physician medical assistant ob gyn in the clinic back on November 06 and was started on some tramadol and steroid. They are currently trying to get patient set up for an outpatient MRI. She rates her pain currently a 10 out of 10 and its in her lower back. Any movement such as walking, sitting or bending aggravates pain. Endorses having some pain and tingling radiating down left leg. Patient does take Suboxone daily and took her last dose of Suboxone was yesterday and she has not taken it today. Associated symptoms: Deny abdominal pain, chills, dysuria, fatigue, fever(s), hematuria, nausea or vomiting Review of Systems Const: Denies: fever(s), chills or fatigue Eyes: Denies: change in vision or eye discomfort ENMT: Denies: throat pain, odynophagia, nasal discharge or nasal congestion Card: Denies: chest pain, palpitations, edema, swelling of feet/ankles, dyspnea on exertion or orthopnea Resp: Denies: dyspnea, productive cough or non-productive cough GI: Denies: abdominal pain, nausea, vomiting, diarrhea, constipation or hematochezia : Denies: flank pain, dysuria or hematuria Musc: Reports: back pain (Lower back pain); Denies: neck pain or extremity swelling Skin/Breast: Denies: rash or new lesions Neuro: Denies: headache(s), numbness in extremities or weakness in extremities PFSH ED PFSH: Medical History History of narcotic addiction Reports having spondylolisthesis and chronic lower back pain and was using pain medication for this. In December 2017 she checked herself into rehabilitation at [facility] and has not been on any narcotics since then. History of PCOS States that she was diagnosed with PCOS in her 20s. Major depressive disorder, recurrent severe without psychotic features No pertinent past medical history Denies diabetes, asthma, hypertension, seizures, DVT/PE. PMD: Dr. Urbano Opioid dependence, in remission Opioid dependence, uncomplicated Premenstrual dysphoric disorder Psychiatric care Surgical History History of back surgery Performed in 2019 S/P LEEP Has had 2 LEEP's in the past --->one at the age of 19 for abnormal Pap smear and then again at the age of 27. S/P left knee surgery Open surgery done for done for a torn anterior cruciate ligament S/P wisdom tooth extraction Family History Father Heart disease Grandmother Breast cancer maternal, diagnosed in her 70s Denies family history of Colon cancer Ovarian cancer Diabetes Hyperlipidemia Anesthesia complication Hypertension Uterine cancer Stroke Female Reproductive History: Date of last menstrual period: 08/21/22 Physical Exam Const: COMMON NORMALS: patient oriented x3 and alert GENERAL APPEARANCE: cooperative OTHER: Patient is a very emotional and tearful during history and exam. HENMT: COMMON NORMALS: normocephalic HEAD & SCALP: normocephalic MOUTH: Normal oral and palatal mucosa present THROAT: posterior oropharynx normal and uvula midline Neck/C-Spine: COMMON NORMALS: supple GENERAL: Yes normal visual inspection Resp: COMMON NORMALS: normal respiratory effort, No retractions, No use of accessory muscles and clear to auscultation bilaterally AUSCULTATION: clear to auscultation bilaterally Cardio: COMMON NORMALS: regular rate, regular rhythm, S1 normal heart sound present, S2 normal heart sound present, No gallops present (Cardio), No clicks present (Cardio), No murmurs present (Cardio) and Peripheral pulses 2+ throughout RATE: regular rate RHYTHM: regular rhythm HEART SOUNDS: S1 normal heart sound present and S2 normal heart sound present PERIPHERAL PULSES: Peripheral pulses 2+ throughout GI: COMMON NORMALS: Normal to inspection, nondistended, normoactive bowel sounds present, Soft to palpation, non-tender and no masses PALPATION: Yes Soft to palpation : COMMON NORMALS: Yes no CVA tenderness BLADDER/KIDNEY EXAM: Yes no CVA tenderness Back/Pelvis: COMMON NORMALS: no CVA tenderness LUMBAR SPINE/LOWER BACK: Yes lumbar spinal tenderness Lumbar spinal tenderness location: L4 and L5 and Yes paraspinal muscle tenderness Lumbar paraspinal muscle tenderness: bilateral Extremity: COMMON NORMALS: normal to inspection Neuro: COMMON NORMALS: patient oriented x3 SENSORIUM/ORIENTATION: Yes alert GAIT: Yes Normal gait present Skin: GENERAL SKIN EXAM: dry skin Course Vital Signs: Vital signs: Vital Signs Temperature 97.8 F 11/14/22 09:30 Pulse Rate 90 11/14/22 11:14 Respiratory Rate 16 11/14/22 11:14 Blood Pressure 159/106 11/14/22 11:14 Pulse Oximetry 98 11/14/22 11:14 Oxygen Delivery Me thod 11/14/22 09:30 MDM - Back Pain/Injury Medical Decision Making Patient is a 42-year-old female comes to the ED with lower back pain. Patient has a history of lower back pain and has seen Dr. Sidhu in the past and had lumbar spinal fusion surgery back in October 2020. Patient says her acute low back pain started back on October 25. She saw Dr. Sidhu's physician medical assistant ob gyn in the clinic back on November 06 and was started on some tramadol and steroid. They are currently trying to get patient set up for an outpatient MRI. She rates her pain currently a 10 out of 10 and its in her lower back. Any movement such as walking, sitting or bending aggravates pain. Endorses having some pain and tingling radiating down left leg. Vitals are stable. Patient was given pain meds and muscle relaxer here in the ED. She was stable for discharge home and told to follow-up with Dr. Sidhu's office for further evaluation of back pain. Continue taking your previously prescribed medications. Patient understood agree with plan. Discharge Plan Discharge Patient Disposition: Home Clinical Impression: Low back pain radiating down leg Condition: Stable Prescriptions: No Action acetaminophen [Tylenol Extra Strength] 500 mg tablet 500 mg PO Q6H PRN (Reason: Pain) norethindrone ac-eth estradiol [Junel 12/07 (21)] 1-20 mg-mcg tablet 1 tab PO DAILY Qty: 84 5RF fluoxetine [Prozac] 10 mg capsule 10 mg PO DAILY Qty: 42 5RF buprenorphine-naloxone [Suboxone] 4-1 mg film 1 film sublingual TID Qty: 90 1RF trazodone 100 mg tablet 200 mg PO .HS PRN (Reason: insomnia) Qty: 60 2RF vilazodone [Viibryd] 20 mg tablet 20 mg PO DAILY Qty: 30 2RF Rx Instructions: must administer with a meal/food tramadol 50 mg tablet 50 mg PO Q4H PRN (Reason: pain) Qty: 30 0RF baclofen 20 mg tablet 20 mg PO QID PRN (Reason: back pain) Qty: 30 1RF celecoxib [Celebrex] 200 mg capsule 200 mg PO DAILY Qty: 30 0RF Rx Instructions: Take one cap daily prednisone 20 mg tablet 20 mg PO DAILY Qty: 15 0RF Rx Instructions: 60 mg x 3 days 40 mg x 2 days 20 mg x 2 days Discharge Orders: Discharge ED (Routine); Ordered 11/14/22 Ordered By: Abad Adkins Referrals: Rip Urbano MD [Primary Care Provider] - Discharge Diet: Regular Discharge Activity: Increase activity as tolerated Activity Restrictions/Additional Instructions: Follow-up with medical provider as directed. Contact your doctor that prescribes Suboxone to [facility] filling tramadol prescription. Contact Dr. Sidhu's office for further evaluation of back pain. Take all other medications as previously prescribed. Return to the ER or your medical provider if condition worsens. Please read and understand discharge instructions. Thank you for choosing [facility] for your healthcare needs today. Please realize this is an emergency room and that we are providing you with a medical screening exam and this may not be complete and all inclusive of all the testing and or work up that you may need to determine your ailment or severity of your illness. It is very important that you follow up as instructed or that you return to the Emergency Department should you have concerns or if your condition changes or worsens in any way. Coding Level of Care Code ED Enrollment Coordinator for Monika Fwd Exam Comprehensive
[2022-11-14 10:03] VITALS: BP 136/95
[2022-11-14 10:11] VITALS: RESP 16
[2022-11-14] MEDS: orphenadrine 30 mg/mL Inj 2 mL 60 MG IM (10:11)
[2022-11-14] MEDS: morphine 4 mg/mL SDV 1 mL IM (10:11)
[2022-11-14] MEDS: ketorolac 60 mg/2 mL INJ IM (10:11)
[2022-11-14 11:03] VITALS: BP 159/106; PULSE 90; RESP 16; O2SAT 98
[2022-11-14 11:05] VITALS: RESP 16
[2022-11-14] MEDS: oxyCODONE-APAP 5-325 mg Tablet 1 TAB PO (11:05)
[2022-11-14 11:14] VITALS: BP 159/106; PULSE 90; RESP 16; O2SAT 98
== END 2022-11-14 11:25 | disposition home or self-care (01) ==
PROVIDERS: Emergency Provider Physician Assistant; PCP Family Medicine
DX: M54.50 Low back pain, unspecified (principal)
CPT/HCPCS: 96372; 99284; J1885; J2270; J2360

== ENCOUNTER 2022-11-15 09:08 | Outpatient (CLI) | payer OTHER, SELFPAY ==
--- NOTE | 2022-11-15 09:45 | MR_ITS ---
WS: [id number] MRI LUMBAR SPINE NONCONTRAST HISTORY: Bilateral lower extremity pain for 2 weeks. No injury. COMPARISON: 06/22/2020 TECHNIQUE: Sagittal and axial multisequence imaging is submitted. As noted on the prior CT there are 5 lumbar type vertebral bodies with the S1 segment being lumbarize d. Since the prior examination posterior lumbar fusion as before then performed at L5-S1. Interbody disc spacer at L5-S1. Anterolisthesis of L5 by 5 mm is unchanged. Mild desiccation of the disc spaces greatest at L5-S1 and S1-S2. Conus terminates normally at L1-2 disc level. L1-L2: Normal. L2-L3: Normal. L3-L4: Mild annular disc bulging with ligamentum flavum and facet arthritis. Into the foramina. No si gnificant stenosis. L4-L5: Diffuse annular disc bulging with facet hypertrophy and osteophytosis. Mild to moderate bilate ral foraminal stenosis. Slightly greater encroachment into the LEFT foramen. No central stenosis. L5-S1: Mild unroofing of the disc. Significant artifact obscuring the disc level. There is mild centr al, bilateral subarticular recess and foraminal encroachment. Posterior laminectomy defect. S1-S2: Mild disc bulging with no high-grade stenosis. Paravertebral soft tissues are negative. MR/MR lumbar spine wo con* [id number] IMPRESSION: 1. Since the prior examination status post posterior lumbar fusion at L5-S1 wi th interbody spacer. 2. No progression of the L5 anterolisthesis. 3. Continued mild central, bilateral subarticular recess and foraminal stenosi s at L5-S1. Does not appear as quite as significant as on the prior study altho ugh there is artifact from the patient's hardware obscuring the disc level in t he foramina. 4. Mild to moderate bilateral foraminal stenosis at L4-5 slightly greater on t he LEFT. No central stenosis.
== END 2022-11-15 09:09 | disposition home or self-care (01) ==
PROVIDERS: PCP Family Medicine; Visit Provider Family Medicine Adult Medicine
DX: M79.604 Pain in right leg (principal); M79.605 Pain in left leg; M48.07 Spinal stenosis, lumbosacral region; M48.061 Spinal stenosis, lumbar region without neurogenic claudication
CPT/HCPCS: 72148

== ENCOUNTER → 2023-01-23 14:50 | Outpatient (BNVA) | payer OTHER, SELFPAY | PROVIDERS: PCP Family Medicine; Visit Provider Clinical Nurse Specialist Adult Health | DX: J06.9 Acute upper respiratory infection, unspecified (principal) | CPT/HCPCS: 87426 ==

== ENCOUNTER → 2023-01-28 12:02 | Outpatient (BNVA) | payer OTHER, SELFPAY | PROVIDERS: PCP Family Medicine; Visit Provider Psychiatry & Neurology Psychiatry | DX: F12.20 Cannabis dependence, uncomplicated (principal); F11.20 Opioid dependence, uncomplicated; Z79.899 Other long term (current) drug therapy; F33.2 Major depressive disorder, recurrent severe without psychotic features | CPT/HCPCS: 80307 ==

== ENCOUNTER → 2023-03-01 16:25 | Outpatient (BNVA) | payer OTHER, SELFPAY | PROVIDERS: PCP Family Medicine; Visit Provider Psychiatry & Neurology Psychiatry | DX: F11.20 Opioid dependence, uncomplicated (principal); Z79.899 Other long term (current) drug therapy | CPT/HCPCS: 80307 ==

== ENCOUNTER → 2023-05-31 13:58 | Outpatient (BNVA) | payer OTHER, SELFPAY | PROVIDERS: PCP Family Medicine; Visit Provider Psychiatry & Neurology Psychiatry | DX: F12.20 Cannabis dependence, uncomplicated (principal); F11.20 Opioid dependence, uncomplicated; Z79.899 Other long term (current) drug therapy; F17.210 Nicotine dependence, cigarettes, uncomplicated; F33.2 Major depressive disorder, recurrent severe without psychotic features | CPT/HCPCS: 80307 ==

== ENCOUNTER 2023-06-14 08:07 | Outpatient (CLI) | payer OTHER, SELFPAY ==
--- NOTE | 2023-06-14 08:00 | US_ITS ---
WS: [id number] US pelv w/transvag [id number] HISTORY: R10.32 - Left lower quadrant pain COMPARISON: 08/14/2022 Uterus: 6.5 cm x 4.1 cm x 2.7 cm. Normal size anteverted uterus. No fibroid or mass. Endometrium: 0.4 cm. Normal. Homogeneous endometrium with no increased vascularity. Normal junctional zone. Right ovary: 4.3 cm x 2.8 cm x 2.9 cm. Mildly prominent RIGHT ovary. Dominant follicle measures 2.0 x 2.1 x 2.4 cm. No solid mass. Normal vascularity. Left ovary: 3.3 cm x 1.7 cm x 2.3 cm. Normal size and vascularity, no cystic or solid masses. No free fluid in the cul-de-sac. US/US pelv w/transvag [id number] IMPRESSION: 1. Normal pelvic ultrasound. 2. Normal endometrium. 3. Dominant RIGHT ovarian follicle.
== END 2023-06-14 08:08 | disposition home or self-care (01) ==
PROVIDERS: PCP Family Medicine; Visit Provider Obstetrics & Gynecology
DX: R10.32 Left lower quadrant pain (principal)
CPT/HCPCS: 76830; 76856

== ENCOUNTER → 2023-10-16 16:23 | Outpatient (BNVA) | payer OTHER, SELFPAY | PROVIDERS: PCP Family Medicine; Visit Provider Psychiatry & Neurology Psychiatry | DX: F11.20 Opioid dependence, uncomplicated (principal); Z79.899 Other long term (current) drug therapy | CPT/HCPCS: 80307 ==

== ENCOUNTER → 2023-12-10 13:25 | Outpatient (BNVA) | payer OTHER, SELFPAY | PROVIDERS: PCP Family Medicine; Visit Provider Psychiatry & Neurology Psychiatry | DX: F11.20 Opioid dependence, uncomplicated (principal); Z79.899 Other long term (current) drug therapy | CPT/HCPCS: 80307 ==

== ENCOUNTER → 2024-01-01 15:39 | Outpatient (BNVA) | payer OTHER, SELFPAY | PROVIDERS: PCP Family Medicine; Visit Provider Obstetrics & Gynecology | DX: E28.2 Polycystic ovarian syndrome (principal) | CPT/HCPCS: 80053; 84443; 85025 ==

== ENCOUNTER → 2024-01-24 13:38 | Outpatient (BNVA) | payer OTHER, SELFPAY | PROVIDERS: PCP Family Medicine; Visit Provider Psychiatry & Neurology Psychiatry | DX: F33.2 Major depressive disorder, recurrent severe without psychotic features (principal); F12.20 Cannabis dependence, uncomplicated; F11.20 Opioid dependence, uncomplicated; Z79.899 Other long term (current) drug therapy | CPT/HCPCS: 80307 ==

== ENCOUNTER 2024-04-21 11:40 | Outpatient (CLI) | payer OTHER, SELFPAY ==
--- NOTE | 2024-04-21 11:40 | MM_ITS ---
WS: [id number] BILATERAL 3D TOMOSYNTHESIS DIGITAL SCREENING MAMMOGRAPHY WITH CAD CLINICAL INFORMATION: SCREENING HISTORY: Screening mammogram. No current complaints. COMPARISON: 2020 TECHNIQUE: Bilateral CC and MLO views. FINDINGS: The breasts are composed of heterogeneous fibroglandular density tissue, which can limit the detectio n of small underlying mass lesions. No suspicious mass, asymmetry, calcifications, or architectural d istortion. No evidence of malignancy. Incidental punctate and lucent centered calcifications. MM/[place] [id number] IMPRESSION: BI-RADS: 2-Benign FOLLOW UP: 1 Year Follow-up Recommend return to annual screening mammography.
== END 2024-04-21 11:41 | disposition home or self-care (01) ==
LOC: MOBLMAM 11:46
PROVIDERS: PCP Obstetrics & Gynecology; Visit Provider Obstetrics & Gynecology
DX: Z12.31 Encounter for screening mammogram for malignant neoplasm of breast (principal); R92.323 Mammographic fibroglandular density, bilateral breasts; R92.333 Mammographic heterogeneous density, bilateral breasts; R92.1 Mammographic calcification found on diagnostic imaging of breast
CPT/HCPCS: 77063; 77067

== ENCOUNTER → 2024-05-05 14:08 | Outpatient (BNVA) | payer OTHER, SELFPAY | PROVIDERS: PCP Obstetrics & Gynecology; Visit Provider Psychiatry & Neurology Psychiatry | DX: F11.20 Opioid dependence, uncomplicated (principal); F12.20 Cannabis dependence, uncomplicated; Z79.899 Other long term (current) drug therapy | CPT/HCPCS: 80307 ==

== ENCOUNTER → 2024-12-30 16:31 | Outpatient (BNVA) | payer OTHER, SELFPAY | PROVIDERS: PCP Obstetrics & Gynecology; Visit Provider Obstetrics & Gynecology | DX: Z01.419 Encounter for gynecological examination (general) (routine) without abnormal findings (principal) | CPT/HCPCS: 87624 ==

== ENCOUNTER 2025-05-12 10:39 | Outpatient (CLI) | payer OTHER, SELFPAY ==
--- NOTE | 2025-05-12 10:40 | MM_ITS ---
WS: [id number] BILATERAL 3D TOMOSYNTHESIS DIGITAL SCREENING MAMMOGRAPHY WITH CAD CLINICAL INFORMATION: SCREENING HISTORY: Screening mammogram. No current complaints. COMPARISON: 2023 TECHNIQUE: Bilateral CC and MLO views. FINDINGS: The breasts are composed of heterogeneous fibroglandular density tissue, which can limit the detection of small underlying mass lesions. No suspicious mass, asymmetry, calcifications, or architectural distortion. No evidence of malignancy. Incidental punctate and lucent centered calcifications. MM/MM [facility] tomosynthesis [id number] IMPRESSION: DENSITY: The breasts are heterogeneously dense, which may obscure small masses. BI-RADS: 2 - Benign FOLLOW UP: 1 Year Follow-up Recommend return to annual screening mammography.
== END 2025-05-12 10:40 | disposition home or self-care (01) ==
PROVIDERS: PCP Obstetrics & Gynecology; Visit Provider Obstetrics & Gynecology
DX: Z12.31 Encounter for screening mammogram for malignant neoplasm of breast (principal); R92.333 Mammographic heterogeneous density, bilateral breasts; R92.1 Mammographic calcification found on diagnostic imaging of breast
CPT/HCPCS: 77063; 77067

== ENCOUNTER → 2025-11-09 10:59 | Outpatient (BNVA) | payer OTHER, SELFPAY | PROVIDERS: Visit Provider Obstetrics & Gynecology | DX: N93.9 Abnormal uterine and vaginal bleeding, unspecified (principal); N88.8 Other specified noninflammatory disorders of cervix uteri | CPT/HCPCS: 76830 ==